=== PATIENT | male | born 1955 | race Caucasian/White ===

== ENCOUNTER 2017-06-21 12:30 | Observation (INO) | payer OTHER ==
[~2017-06-21] VITALS: Ht 175.3 cm; Wt 91.9 kg
[~2017-06-21 12:30] MED LIST: ACET650S21 PO; ATOR20TA9 PO; OMEP10CA4 PO; PRAM3TAB PO; PREG100C PO
[2017-06-21] MEDS ORDERED: OMEP40CA6 PO (12:56)
[2017-06-21] MEDS ORDERED: LISI10TA2 PO (12:56)
[2017-06-21] MEDS ORDERED: SODIUM CHLORIDE FLUSH 10ML SYR IVF ONE (13:00)
[2017-06-21 13:10] LABS: BASOPHILS # (AUTO) 0.05 x10^3/uL (0-0.1); BASOPHILS % (AUTO) 1 % (0-1); EOSINOPHILS % (AUTO) 2 % (1-7); LYMPHOCYTES # (AUTO) 1.49 x10^3/uL (1-3.4); LYMPHOCYTES % (AUTO) 28 % (22-44); MD NO; MEAN CORPUSCULAR HEMOGLOBIN 31.6 pg (27.5-34.5); MEAN CORPUSCULAR HGB CONC 33.7 g/dL (33.2-36.2); MEAN PLATELET VOLUME 7.9 fL (7.4-10.4); MONOCYTES # (AUTO) 0.38 x10^3/uL (0.2-0.8); MONOCYTES % (AUTO) 7 % (2-9); NEUTROPHILS # (AUTO) 3.23 x10^3/uL (1.8-6.8); NEUTROPHILS % (AUTO) 62 % (42-75); PLATELET COUNT 197 x10^3/uL (130-400); RED BLOOD COUNT 4.54 x10^6/uL (4.38-5.82); RED CELL DISTRIBUTION WIDTH 13.4 % (9.4-14.8)
[2017-06-21 13:21] LABS: ALBUMIN 3.8 g/dL (3.4-5.0); ANION GAP 3 mmol/L (5-15); CALCIUM 8.7 mg/dL (8.5-10.1); CHLORIDE 109 mmol/L (98-107); CREATININE 1.52 mg/dL (0.7-1.3); T4 (THYROXINE) 10.6 mcg/dL (4.5-12.1)
[2017-06-21 13:25] LABS: TROPONIN I < 0.015 ng/mL (0.000-0.045)
[2017-06-21 15:07] VITALS: BP 149/91
[2017-06-21] MEDS ORDERED: LABETALOL 5MG/ML, 20ML IVPush PRN (16:00)
[2017-06-21] MEDS ORDERED: ONDANSETRON 2MG/ML, 2ML IVPush PRN (16:00)
[2017-06-21] MEDS ORDERED: ACETAMINOPHEN 325 MG TABLET PO PRN (16:00)
[2017-06-21] MEDS ORDERED: ENALAPRILAT 1.25 MG/ML, 2ML IVPush PRN (16:00)
[2017-06-21] MEDS ORDERED: BISACODYL 10 MG SUPP PR PRN (16:00)
[2017-06-21] MEDS ORDERED: morphine SULFATE 10 MG/ML, 1ML IVPush PRN (16:00)
[2017-06-21] MEDS ORDERED: LISINOPRIL 10 MG TABLET PO SCH (17:00)
[2017-06-21 18:41] LABS: TROPONIN I < 0.015 ng/mL (0.000-0.045)
[2017-06-21 19:42] VITALS: BP 122/77
[2017-06-21] MEDS: DOCUSATE 100 MG CAPSULE PO SCH (19:59)
[2017-06-21] MEDS ORDERED: ATORVASTATIN 20 MG TABLET PO SCH (21:00)
[2017-06-21] MEDS ORDERED: PRAMIPEXOLE 0.5MG TABLET PO SCH (22:00)
[2017-06-22 00:12] LABS: TROPONIN I < 0.015 ng/mL (0.000-0.045)
[2017-06-22 00:49] VITALS: BP 98/60
[2017-06-22 04:56] LABS: BASOPHILS # (AUTO) 0.02 x10^3/uL (0-0.1); BASOPHILS % (AUTO) 0 % (0-1); EOSINOPHILS # (AUTO) 0.11 x10^3/uL (0-0.4); EOSINOPHILS % (AUTO) 2 % (1-7); LYMPHOCYTES # (AUTO) 1.31 x10^3/uL (1-3.4); LYMPHOCYTES % (AUTO) 23 % (22-44); MD NO; MEAN CORPUSCULAR HEMOGLOBIN 31.8 pg (27.5-34.5); MEAN CORPUSCULAR HGB CONC 33.8 g/dL (33.2-36.2); MEAN CORPUSCULAR VOLUME 94.1 fL (81-97); MEAN PLATELET VOLUME 8.2 fL (7.4-10.4); MONOCYTES # (AUTO) 0.38 x10^3/uL (0.2-0.8); MONOCYTES % (AUTO) 7 % (2-9); NEUTROPHILS # (AUTO) 3.91 x10^3/uL (1.8-6.8); NEUTROPHILS % (AUTO) 68 % (42-75); PLATELET COUNT 188 x10^3/uL (130-400); RED CELL DISTRIBUTION WIDTH 13.4 % (9.4-14.8)
[2017-06-22 05:23] LABS: ANION GAP 7 mmol/L (5-15); CALCIUM 8.8 mg/dL (8.5-10.1); CHLORIDE 107 mmol/L (98-107)
[2017-06-22 05:24] LABS: CREATININE 1.57 mg/dL (0.7-1.3)
[2017-06-22] MEDS ORDERED: ASPIRIN 325 MG TABLET EC PO SCH (06:00)
[2017-06-22 06:47] VITALS: BP 106/70
[2017-06-22] MEDS: DOCUSATE 100 MG CAPSULE PO SCH (07:50)
[2017-06-22] MEDS ORDERED: LISINOPRIL 10 MG TABLET PO SCH (09:00)
[2017-06-22] MEDS ORDERED: POLYETHYLENE GLYCOL 17 GM PACKET PO SCH (09:00)
[2017-06-22] MEDS ORDERED: OMEPRAZOLE 20 MG CAPSULE.DR PO SCH (09:00)
[2017-06-22] MEDS ORDERED: REGADENOSON 0.4 MG/5 ML SYRINGE ONE (09:09)
[2017-06-22 13:02] VITALS: BP 111/71
[2017-06-22] MEDS ORDERED: DOCU-131 PO (14:09)
[2017-06-22] MEDS ORDERED: POLY17PO5 PO (14:09)
[2017-06-22 14:11] VITALS: BP 100/63
== END 2017-06-22 14:51 | disposition home or self-care (01) ==
LOC: ED 13:50 → EDIP 13:59 → INTOOBSV 13:59 → ED 14:11 → 5SO 14:59 → DCLOUNGE 06-22 14:44
PROVIDERS: ADMIT Internal Medicine; ATTEND Internal Medicine
DX: R07.89 Other chest pain (principal); M19.90 Unspecified osteoarthritis, unspecified site; G90.01 Carotid sinus syncope; K59.00 Constipation, unspecified; Z95.0 Presence of cardiac pacemaker; M51.36 Other intervertebral disc degeneration, lumbar region; I10 Essential (primary) hypertension
CPT/HCPCS: 36415; 71045; 78452; 80048; 82040; 83735; 84436; 84443; 84484; 85025; 85379; 93005; 93017; 99285; A9502; C9898; G0378; J2785

== ENCOUNTER 2017-08-26 07:49 | Day surgery (SDC) | payer OTHER ==
[~2017-08-26] VITALS: Ht 175.3 cm; Wt 95.0 kg
[~2017-08-26 07:49] MED LIST changes: +DOCU-131 PO; +LISI10TA2 PO; +OMEP40CA6 PO; +POLY17PO5 PO
[2017-08-26] MEDS ORDERED: LIDOCAINE 2%, 10ML ONE (08:29)
[2017-08-26] MEDS ORDERED: LIDOCAINE-MPF 1%, 5ML ONE (08:30)
[2017-08-26 08:39] VITALS: BP 142/92
[2017-08-26] MEDS ORDERED: GABA300C10 PO (08:43)
[2017-08-26] MEDS ORDERED: SODIUM CHLORIDE 0.9% 500 ML IV SCH (09:00)
== END 2017-08-26 14:30 ==
LOC: OUT 07:49
PROVIDERS: ATTEND Physician Assistant Surgical
DX: M48.02 Spinal stenosis, cervical region (principal); M50.221 Other cervical disc displacement at C4-C5 level; M50.222 Other cervical disc displacement at C5-C6 level
CPT/HCPCS: 62284; 72126; J7040; Q9967; J3490

== ENCOUNTER → 2017-08-28 | Outpatient (CLI) | payer OTHER ==
[~2017-08-28] MED LIST changes: +GABA300C10 PO
== END | disposition home or self-care (01) ==
LOC: RAD 12:16
PROVIDERS: ATTEND Radiology Diagnostic Radiology
DX: G97.1 Other reaction to spinal and lumbar puncture (principal)
CPT/HCPCS: 62273

== ENCOUNTER 2017-11-24 16:45 | Emergency (ER) | payer OTHER ==
[~2017-11-24] VITALS: Ht 175.3 cm; Wt 91.0 kg
[2017-11-24] MEDS ORDERED: DIAZEPAM 5 MG TABLET PO ONE (18:12)
[2017-11-24] MEDS ORDERED: HYDROcodone/APAP 5/325 TABLET PO ONE (18:12)
[2017-11-24] MEDS ORDERED: METH500T7 PO (18:14)
[2017-11-24] MEDS ORDERED: MELO7.5T31 PO (18:14)
[2017-11-24] MEDS ORDERED: KETOROLAC 30 MG/1 ML ONE (18:22)
[2017-11-24] MEDS ORDERED: DIAZEPAM 5 MG TABLET ONE (18:23)
[2017-11-24] MEDS ORDERED: HYDROcodone/APAP 5/325 TABLET ONE (18:23)
[2017-11-24] MEDS ORDERED: KETOROLAC 30 MG/1 ML IM ONE (18:30)
[2017-11-24 19:12] VITALS: BP 132/88
== END 2017-11-24 20:03 ==
LOC: ED 19:57
DX: M47.892 Other spondylosis, cervical region (principal); M62.830 Muscle spasm of back; I11.9 Hypertensive heart disease without heart failure; Z95.0 Presence of cardiac pacemaker
CPT/HCPCS: 72125; 96372; 99284; J1885

== ENCOUNTER 2018-06-17 13:05 | Emergency (ER) | payer OTHER ==
[~2018-06-17] VITALS: Ht 175.3 cm; Wt 95.8 kg
[~2018-06-17 13:05] MED LIST changes: +ATOR20TA37 PO; -ATOR20TA9 PO; +MELO7.5T31 PO; +METH500T7 PO
[2018-06-17 14:01] LABS: BASOPHILS # (AUTO) 0.01 x10^3/uL (0-0.1); BASOPHILS % (AUTO) 0 % (0-1); EOSINOPHILS # (AUTO) 0.15 x10^3/uL (0-0.4); EOSINOPHILS % (AUTO) 2 % (1-7); LYMPHOCYTES # (AUTO) 1.12 x10^3/uL (1-3.4); LYMPHOCYTES % (AUTO) 13 % (22-44); MD NO; MEAN CORPUSCULAR HEMOGLOBIN 29.3 pg (27.5-34.5); MEAN CORPUSCULAR HGB CONC 32.5 g/dL (33.2-36.2); MEAN CORPUSCULAR VOLUME 90.3 fL (81-97); MEAN PLATELET VOLUME 7.7 fL (7.4-10.4); MONOCYTES # (AUTO) 0.48 x10^3/uL (0.2-0.8); MONOCYTES % (AUTO) 6 % (2-9); NEUTROPHILS # (AUTO) 6.67 x10^3/uL (1.8-6.8); NEUTROPHILS % (AUTO) 79 % (42-75); PLATELET COUNT 348 x10^3/uL (130-400); RED BLOOD COUNT 4.32 x10^6/uL (4.38-5.82); RED CELL DISTRIBUTION WIDTH 13.7 % (9.4-14.8)
[2018-06-17 14:11] LABS: ALANINE AMINOTRANSFERASE 16 U/L (12-78); ALBUMIN 3.2 g/dL (3.4-5.0); ANION GAP 7 mmol/L (5-15); CALCIUM 9.4 mg/dL (8.5-10.1); CHLORIDE 106 mmol/L (98-107)
[2018-06-17 14:13] LABS: ALKALINE PHOSPHATASE 120 U/L (45-117); BILIRUBIN,TOTAL 0.5 mg/dL (0.2-1.0); TOTAL PROTEIN 7.1 g/dL (6.4-8.2)
--- NOTE | 2018-06-17 15:48 | NUR ---
Dr. Brizuela at bedside to evaluate pt.
--- NOTE | 2018-06-17 16:07 | NUR ---
Lab at bedside. Pt made aware of need for urine sample.
--- NOTE | 2018-06-17 16:15 | NUR ---
XR at bedside.
[2018-06-17 16:56] LABS: MICROSCOPIC NOT IND
[2018-06-17 16:58] LABS: CULTURE INDICATED? NO
--- NOTE | 2018-06-17 17:28 | NUR ---
Dr. Brizuela at bedside to discuss ED findings and POC.
[2018-06-17 17:40] VITALS: BP 122/82
--- NOTE | 2018-06-17 18:06 | NUR ---
Patient/Caregiver given discharge instructions and they have confirmed that they understand the instructions. Patient ambulatory with steady gait.
== END 2018-06-17 18:07 | disposition home or self-care (01) ==
LOC: ED 17:50
DX: I12.9 Hypertensive chronic kidney disease with stage 1 through stage 4 chronic kidney disease, or unspecified chronic kidney disease (principal); N18.2 Chronic kidney disease, stage 2 (mild); M13.861 Other specified arthritis, right knee; M13.862 Other specified arthritis, left knee; M13.871 Other specified arthritis, right ankle and foot; M13.872 Other specified arthritis, left ankle and foot; M13.842 Other specified arthritis, left hand; M13.841 Other specified arthritis, right hand; B97.6 Parvovirus as the cause of diseases classified elsewhere; R50.81 Fever presenting with conditions classified elsewhere; Z95.0 Presence of cardiac pacemaker
CPT/HCPCS: 36415; 71045; 80053; 81003; 82550; 83605; 84145; 85025; 87040; 99284

== ENCOUNTER 2019-07-25 00:06 | Emergency (ER) | payer OTHER ==
[~2019-07-25] VITALS: Ht 175.3 cm; Wt 96.9 kg
[~2019-07-25 00:06] MED LIST changes: -OMEP10CA4 PO; +OMEP10CA5 PO; +OMEP40CA42 PO; -OMEP40CA6 PO
[2019-07-25 01:13] LABS: BASOPHILS # (AUTO) 0.08 x10^3/uL (0-0.1); BASOPHILS % (AUTO) 1 % (0-1); EOSINOPHILS # (AUTO) 0.38 x10^3/uL (0-0.4); EOSINOPHILS % (AUTO) 7 % (1-7); LYMPHOCYTES # (AUTO) 1.43 x10^3/uL (1-3.4); LYMPHOCYTES % (AUTO) 26 % (22-44); MD NO; MEAN CORPUSCULAR HEMOGLOBIN 30.7 pg (27.5-34.5); MEAN CORPUSCULAR HGB CONC 33.3 g/dL (33.2-36.2); MEAN PLATELET VOLUME 8.6 fL (7.4-10.4); MONOCYTES # (AUTO) 0.51 x10^3/uL (0.2-0.8); MONOCYTES % (AUTO) 9 % (2-9); NEUTROPHILS # (AUTO) 3.22 x10^3/uL (1.8-6.8); NEUTROPHILS % (AUTO) 57 % (42-75); PLATELET COUNT 197 x10^3/uL (130-400); RED BLOOD COUNT 4.42 x10^6/uL (4.38-5.82); RED CELL DISTRIBUTION WIDTH 14.1 % (9.4-14.8)
[2019-07-25 01:27] LABS: ALBUMIN 3.6 g/dL (3.4-5.0); ANION GAP 7 mmol/L (5-15); CALCIUM 8.8 mg/dL (8.5-10.1); CHLORIDE 111 mmol/L (98-107); CREATININE 1.51 mg/dL (0.7-1.3)
[2019-07-25 01:30] LABS: TROPONIN I < 0.015 ng/mL (0.000-0.045)
--- NOTE | 2019-07-25 01:52 | NUR ---
PACER INTERROGATION PERFORMED AT BEDSIDE. [place] WITH SPOUSE AT BS. PT DENIES ANY NEEDS AND HAS CALL LIGHT WITHIN REACH AT THIS TIME.
[2019-07-25 04:26] VITALS: BP 131/71
--- NOTE | 2019-07-25 04:26 | NUR ---
PT VSS AND UPDATED IN EMR.
--- NOTE | 2019-07-25 04:26 | NUR ---
DR JUARES AT DISCUSSING PT DISPO AND POC.
--- NOTE | 2019-07-25 04:52 | NUR ---
PT D/C WITH D/C SUMMARY. ALL QUESTIONS ANSWERED. PT AMBULATES TO REGISTRATION DESK WITH STEADY GAIT FOR D/C HOME. PT DENIES ANY OTHER NEEDS PERTAINING TO THIS VISIT.
== END 2019-07-25 04:53 | disposition home or self-care (01) ==
LOC: ED 01:15
DX: R00.2 Palpitations (principal); I11.9 Hypertensive heart disease without heart failure; R94.31 Abnormal electrocardiogram [ECG] [EKG]
CPT/HCPCS: 36415; 71046; 80048; 82040; 84484; 85025; 93005; 99285

== ENCOUNTER → 2019-08-09 | Outpatient (CLI) | payer OTHER | END | disposition home or self-care (01) | LOC: CFH 08:29 | PROVIDERS: ATTEND Physician Assistant Medical | DX: I37.1 Nonrheumatic pulmonary valve insufficiency (principal); I11.9 Hypertensive heart disease without heart failure; E78.5 Hyperlipidemia, unspecified; Z95.0 Presence of cardiac pacemaker | CPT/HCPCS: 93306 ==

== ENCOUNTER 2019-09-26 07:15 | Day surgery (SDC) | payer OTHER ==
[~2019-09-26] VITALS: Ht 175.3 cm; Wt 93.0 kg
[2019-09-26 08:04] VITALS: BP 132/86
[2019-09-26] MEDS ORDERED: SODIUM CHLORIDE 0.9% 1,000 ML IV SCH (08:08)
[2019-09-26] MEDS ORDERED: OMNIPAQUE 180 MG/ML, 20ML VIAL ONE (09:00)
== END 2019-09-26 13:30 | disposition home or self-care (01) ==
LOC: RAD 07:15 → OUT 13:30
PROVIDERS: ATTEND Orthopaedic Surgery Adult Reconstructive Orthopaedic Surgery
DX: C82.08 Follicular lymphoma grade I, lymph nodes of multiple sites (principal); M51.16 Intervertebral disc disorders with radiculopathy, lumbar region; M51.17 Intervertebral disc disorders with radiculopathy, lumbosacral region; I10 Essential (primary) hypertension; Z95.0 Presence of cardiac pacemaker
CPT/HCPCS: 62284; 72132; 77003; J7030; Q9965; 62270